=== PATIENT | female | born 1965 | race African-American/Black ===

== ENCOUNTER 2016-09-27 16:02 | Emergency (ER) | payer OTHER ==
[~2016-09-27] VITALS: Ht 157.5 cm; Wt 85.0 kg
[~2016-09-27 16:02] MED LIST: AMLO10 PO; COZA100T PO; HYDR-2768 PO; KLOR20TA6 PO; SPIR25TA PO
[2016-09-27 16:04] VITALS: BP 204/105; PULSE 64; RESP 16; TEMP 98.1; O2SAT 99
--- NOTE | 2016-09-27 16:10 | PD ---
Physical Exam Time Seen by Provider: 16:08 Narrative 51 y/o female with poorly controlled htn presents for evaluation of blurred vision for 3 days, h/a for one day. Sent by Dr. Obrien. Vital signs reviewed. Seen at triage desk. Awaiting bed placement. Data Data Last Documented VS Vital Signs Date Time Temp Pulse Resp B/P Pulse Ox O2 Delivery O2 Flow Rate FiO2 09/27/16 16:04 98.1 64 16 204/105 99 MDM Medical Record Reviewed: Yes Supervised Visit with NORA: No Allan Moses Sep 27, 2016 16:10
[2016-09-27 16:25] VITALS: BP 185/91; PULSE 63; RESP 18; O2SAT 98
--- NOTE | 2016-09-27 16:27 | PD ---
HPI Chief Complaint: Hypertension Time Seen by Provider: 16:13 Travel History International Travel<30 days: No Contact w/Intl Traveler<30days: No Traveled to known affect area: No History of Present Illness HPI 51 y/o female presents with blurry vision and frontal headache over the past couple of days with poorly controlled blood pressure. She states her primary doctor has tried to adjust her medications but they are having difficulty controlling her pressure. She denies any any numbness, weakness, fever or other concurrent complaints. Quality is pressure. Severity is mild. She states that her symptoms are getting better. She states she went to her primary doctor and they advised her to come here because they didn't know what else to do for her. She states they're working on referring her to a specialist to help control her pressure and do more testing as well. [facility] Past Medical History Anemia: Yes Asthma: Yes Heart Rhythm Problems: No Cancer: No Cardiovascular Problems: Yes High Cholesterol: No Chest Pain: No Congestive Heart Failure: No COPD: No Cerebrovascular Accident: No Diabetes: Yes (diet controlled) Diminished Hearing: No Endocrine: No Genitourinary: No Headaches: Yes Hypertension: Yes Immune Disorder: No Musculoskeletal: No Neurologic: Yes Psychiatric: No Reproductive: No Respiratory: Yes Migraines: No Seizures: Yes Sleep Apnea: No : 2 Para: 2 Miscarriage: 0 : 0 Tubal Ligation: Yes (1990) Past Surgical History Abdominal Surgery: No Cardiac Surgery: No Ear Surgery: No Endocrine Surgery: No Eye Surgery: No Genitourinary Surgery: No Gynecologic Surgery: Yes Hysterectomy: Yes Neurologic Surgery: Yes (ANUERYSM REPAIR 2006) Oral Surgery: No Thoracic Surgery: No Other Surgery: Yes (BIOPSY RT LEG ) Social History Alcohol Use: Yes (WINE ON THE WEEKENDS) Tobacco Use: Yes (<2-3 DAILY) Substance Use: No Allergies-Medications (Allergen,Severity, Reaction): Coded Allergies: No Known Allergies (Verified , 05/05/15) Reported Meds & Prescriptions Reported Meds & Active Scripts Active Reported K-Dur (Potassium Chloride) 20 Meq Tabcr 20 Meq PO DAILY Hctz (Hydrochlorothiazide) 25 Mg Tab 25 Mg PO DAILY Spironolactone Unknown Strength Tab 50 Mg PO DAILY Cozaar (Losartan Potassium) 100 Mg Tab 50 Mg PO DAILY Norvasc (Amlodipine Besylate) 10 Mg Tab 10 Mg PO DAILY Review of Systems Except as stated in HPI: all other systems reviewed are Neg Physical Exam Narrative GENERAL: Well-nourished, well-developed patient. Well-appearing SKIN: Warm and dry. HEAD: Normocephalic and atraumatic. EYES: No injection or drainage. ENT: No nasal drainage noted. NECK: Supple, trachea midline. CARDIOVASCULAR: Regular rate and rhythm RESPIRATORY: Breath sounds equal bilaterally at apices. No accessory muscle use. GASTROINTESTINAL: Abdomen soft, non-tender, nondistended. EXTREMITIES: No edema. NEUROLOGICAL: Awake and alert. Motor and sensory grossly within normal limits. Normal speech. 5 out of 5 in all 4 extremities, no facial droop Data Data Last Documented VS Vital Signs Date Time Temp Pulse Resp B/P Pulse Ox O2 Delivery O2 Flow Rate FiO2 09/27/16 16:30 64 170/88 09/27/16 16:25 18 98 Room Air 09/27/16 16:04 98.1 Orders Complete Blood Count With Diff (09/27/16 16:22) Basic Metabolic Panel (Bmp) (09/27/16 16:22) Ct Brain W/O Iv Contrast(Rout) (09/27/16 ) Electrocardiogram (09/27/16 ) Iv Access Insert/Monitor (09/27/16 16:22) Ecg Monitoring (09/27/16 16:22) Oximetry (09/27/16 16:22) Labs Laboratory Tests Test 09/27/16 16:31 White Blood Count 8.1 TH/MM3 Red Blood Count 4.27 MIL/MM3 Hemoglobin 12.4 GM/DL Hematocrit 38.3 % Mean Corpuscular Volume 89.8 FL Mean Corpuscular Hemoglobin 29.1 PG Mean Corpuscular Hemoglobin 32.4 % Concent Red Cell Distribution Width 13.6 % Platelet Count 209 TH/MM3 Mean Platelet Volume 9.0 FL Neutrophils (%) (Auto) 40.7 % Lymphocytes (%) (Auto) 45.9 % Monocytes (%) (Auto) 10.7 % Eosinophils (%) (Auto) 2.2 % Basophils (%) (Auto) 0.5 % Neutrophils # (Auto) 3.3 TH/MM3 Lymphocytes # (Auto) 3.7 TH/MM3 Monocytes # (Auto) 0.9 TH/MM3 Eosinophils # (Auto) 0.2 TH/MM3 Basophils # (Auto) 0.0 TH/MM3 CBC Comment DIFF FINAL Differential Comment Sodium Level 137 MEQ/L Potassium Level 4.4 MEQ/L Chloride Level 101 MEQ/L Carbon Dioxide Level 29.8 MEQ/L Anion Gap 6 MEQ/L Blood Urea Nitrogen 16 MG/DL Creatinine 1.03 MG/DL Estimat Glomerular Filtration 68 ML/MIN Rate Random Glucose 105 MG/DL Calcium Level 9.7 MG/DL MDM Medical Decision Making Medical Screen Exam Complete: Yes Emergency Medical Condition: Yes Medical Record Reviewed: Yes (pmh confirmed) Interpretation(s) CBC & BMP Diagram 09/27/16 16:31 Last [address] 09/27/16 0000 Signed Impressions: Service Date/Time: Tuesday, September 27, 2016 16:50 - CONCLUSION: No acute intracranial findings Rip Howard MD Differential Diagnosis Tension, migraine, hypertensive urgency, bleed Narrative Course Will check blood work, CT brain and monitor ED workup no acute, blood pressure improved on its own,Patient denies any new complaints and states that they are feeling better. Patient happy with care, all questions answered. Patient knows that follow up is incumbent on them and to return to the emergency room immediately if new or worsening symptoms develop. Patient given strict return precautions, vitals reviewed and are normal , agrees to further workup as an outpatient. Diagnosis Primary Impression: Cephalgia Qualified Code: R51 - Acute nonintractable headache, unspecified headache type Patient Instructions: General Instructions Additional Instructions: keep blood pressure log, follow with primary friday, tylenol as needed Med/Other Pt SpecificInfo: No Change to Meds Disposition: 01 DISCHARGE HOME Condition: Stable Ana Mcknight MD Sep 27, 2016 16:26
[2016-09-27 16:30] VITALS: BP 170/88; PULSE 64
[2016-09-27 16:56] LABS: AUTOMATED NEUTROPHIL # 3.3 TH/MM3 (1.8-7.7); BASOPHIL % 0.5 % (0.0-2.0); EOSINOPHIL # 0.2 TH/MM3 (0-0.4); EOSINOPHIL % 2.2 % (0.0-4.0); HEMATOCRIT 38.3 % (35.0-46.0); HEMO FLAGS DIFF FINAL; LYMPH % 45.9 % (9.0-44.0); LYMPHOCYTE # 3.7 TH/MM3 (1.0-4.8); MEAN CELL VOLUME 89.8 FL (80.0-100.0); MEAN CORPUSCULAR HEMOGLOBIN 29.1 PG (27.0-34.0); MEAN CORPUSCULAR HGB CONC 32.4 % (32.0-36.0); MONO % 10.7 % (0.0-8.0); NEUT % 40.7 % (16.0-70.0); PLATELET COUNT 209 TH/MM3 (150-450); RED BLOOD COUNT 4.27 MIL/MM3 (4.00-5.30); RED CELL DISTRIBUTION WIDTH 13.6 % (11.6-17.2); WHITE BLOOD COUNT 8.1 TH/MM3 (4.0-11.0)
--- NOTE | 2016-09-27 17:07 | RADRPT ---
EXAM DATE/TIME: 09/27/2016 16:50 [facility] COMPARISON: CT BRAIN W/O CONTRAST, May 05, 2015, 13:03. INDICATIONS : Uncontrolled hypertension.Blurred vision, headache. RADIATION DOSE: 35.76 CTDIvol (mGy) MEDICAL HISTORY : Hypertension. Cardiovascular disease Seizures.diabetes SURGICAL HISTORY : Tubal ligation. Aneurysm clips in brain. ENCOUNTER: Initial ACUITY: 1 week PAIN SCALE: 6/10 LOCATION: Bilateral cranial TECHNIQUE: Multiple contiguous axial images were obtained of the head. Using automated exposure control and adj ustment of the mA and/or kV according to patient size, radiation dose was kept as low as reasonably a chievable to obtain optimal diagnostic quality images. DICOM format image data is available electro nically for review and comparison. FINDINGS: There is an aneurysm clip in the left anterior skull base region. There has been previous left fronto temporal craniotomy. There is no evidence of intracranial mass or hemorrhage. There is minimal enceph alomalacia in the left frontal region. There is nothing to suggest acute infarction. Ventricles are s ymmetric and normal. CONCLUSION: No acute intracranial findings Rip Howard MD on September 27, 2016 at 17:03 Board Certified Radiologist. This report was verified electronically.
[2016-09-27 17:30] LABS: BICARBONATE 29.8 MEQ/L (21.0-32.0); POTASSIUM 4.4 MEQ/L (3.5-5.1)
[2016-09-27 18:01] VITALS: BP 165/80
--- NOTE | 2016-09-28 07:06 | EKG ---
Date Performed: 09/27/2016 Time Performed: 16:21:36 PTAGE: 51 years EKG: Sinus rhythm MODERATE VOLTAGE CRITERIA FOR LVH, CONSIDER NORMAL VARIANT Nonspecific T wave changes NO PREVIOUS TRACING DOCTOR: Alberto Aguilera Interpretating Date/Time 09/28/2016 07:04:38
== END 2016-09-27 18:19 | disposition home or self-care (01) ==
LOC: NEPE 16:02
DX: R51 Headache (principal); H53.8 Other visual disturbances; D64.9 Anemia, unspecified; J45.909 Unspecified asthma, uncomplicated; E11.9 Type 2 diabetes mellitus without complications; I10 Essential (primary) hypertension; R56.9 Unspecified convulsions; F17.200 Nicotine dependence, unspecified, uncomplicated; Z79.899 Other long term (current) drug therapy
CPT/HCPCS: 70450; 80048; 85025; 93005

== ENCOUNTER 2016-12-17 10:28 | Emergency (ER) | payer OTHER ==
[~2016-12-17] VITALS: Ht 162.6 cm; Wt 100.0 kg
[2016-12-17 10:29] VITALS: BP 124/66; PULSE 72; RESP 32; TEMP 98.5; O2SAT 100
[2016-12-17 10:46] VITALS: BP 110/61; PULSE 68; RESP 24; O2SAT 100
--- NOTE | 2016-12-17 10:49 | PD ---
HPI Chief Complaint: Respiratory Symptoms Time Seen by Provider: 10:47 Travel History International Travel<30 days: No Contact w/Intl Traveler<30days: No Traveled to known affect area: No PFSH Past Medical History Anemia: Yes Asthma: Yes Heart Rhythm Problems: No Cancer: No Cardiovascular Problems: Yes High Cholesterol: No Chest Pain: No Congestive Heart Failure: No COPD: No Cerebrovascular Accident: No Diabetes: Yes (diet controlled) Patient Takes Glucophage: No Diminished Hearing: No Endocrine: No Gastrointestinal Disorders: No Genitourinary: No Headaches: No Hypertension: Yes Immune Disorder: No Implanted Vascular Access Dvce: No Musculoskeletal: No Neurologic: Yes Psychiatric: No Reproductive: No Respiratory: Yes Migraines: No Seizures: Yes Sleep Apnea: No Tetanus Vaccination: < 5 Years ?: Not : 2 Para: 2 Miscarriage: 0 : 0 Tubal Ligation: Yes (1990) Past Surgical History Abdominal Surgery: No Cardiac Surgery: No Ear Surgery: No Endocrine Surgery: No Eye Surgery: No Genitourinary Surgery: No Gynecologic Surgery: Yes Hysterectomy: Yes Neurologic Surgery: Yes (ANUERYSM REPAIR clip 2006) Oral Surgery: No Thoracic Surgery: No Other Surgery: Yes (BIOPSY RT LEG ) Social History Alcohol Use: No Tobacco Use: Yes (3-4 DAILY ) Substance Use: No Allergies-Medications (Allergen,Severity, Reaction): Coded Allergies: amlodipine (Verified Allergy, Severe, 12/17/16) SKIN RASHES, SOB, ANAPHYALAXIS lisinopril (Verified Allergy, Severe, 12/17/16) SKIN RASHES, SOB, ANAPHYALAXIS Reported Meds & Prescriptions Reported Meds & Active Scripts Active Reported K-Dur (Potassium Chloride) 20 Meq Tabcr 20 Meq PO DAILY Hctz (Hydrochlorothiazide) 25 Mg Tab 25 Mg PO DAILY Spironolactone Unknown Strength Tab 50 Mg PO DAILY Cozaar (Losartan Potassium) 100 Mg Tab 50 Mg PO DAILY Norvasc (Amlodipine Besylate) 10 Mg Tab 10 Mg PO DAILY Data Data Last Documented VS Vital Signs Date Time Temp Pulse Resp B/P (MAP) Pulse Ox O2 Delivery O2 Flow Rate FiO2 12/17/16 10:46 68 24 110/61 (77) 100 Room Air 12/17/16 10:29 98.5 MDM Medical Decision Making Medical Screen Exam Complete: Yes Emergency Medical Condition: Yes Medical Record Reviewed: Yes Condition: Stable Mangali,Geno PA Dec 17, 2016 10:49
[2016-12-17] MEDS ORDERED: FURO1TAB60 PO (11:00)
[2016-12-17] MEDS ORDERED: VENTAER INH ×2 (11:00→13:59)
[2016-12-17] MEDS ORDERED: CARV12.5 PO (11:00)
[2016-12-17] MEDS ORDERED: K-TA10TA PO (11:00)
[2016-12-17] MEDS ORDERED: HYDR-3800 PO (11:00)
[2016-12-17] MEDS ORDERED: ZOLO25TA PO (11:00)
[2016-12-17] MEDS ORDERED: LOSA100T PO (11:00)
[2016-12-17] MEDS ORDERED: CART120C PO (11:00)
[2016-12-17 11:07] VITALS: RESP 24; O2SAT 100
[2016-12-17] MEDS ORDERED: RESP: ALBUTEROL 2.5 MG/IPRATROPIUM 0.5 MG NEB (SCH) NEB ONE (11:15)
[2016-12-17] MEDS ORDERED: SODIUM CHLORIDE 0.9% FLUSH 10 ML FLUSH IVF PRN (11:15)
[2016-12-17] MEDS ORDERED: predniSONE 20 MG TAB PO ONE (11:15)
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
[2016-12-17 11:21] LABS: AUTOMATED NEUTROPHIL # 3.6 TH/MM3 (1.8-7.7); BASOPHIL % 0.5 % (0.0-2.0); EOSINOPHIL # 0.1 TH/MM3 (0-0.4); EOSINOPHIL % 1.7 % (0.0-4.0); HEMATOCRIT 35.8 % (35.0-46.0); HEMO FLAGS DIFF FINAL; LYMPH % 43.2 % (9.0-44.0); LYMPHOCYTE # 3.3 TH/MM3 (1.0-4.8); MEAN CELL VOLUME 89.9 FL (80.0-100.0); MEAN CORPUSCULAR HEMOGLOBIN 29.7 PG (27.0-34.0); MEAN CORPUSCULAR HGB CONC 33.1 % (32.0-36.0); MONO % 7.2 % (0.0-8.0); NEUT % 47.4 % (16.0-70.0); PLATELET COUNT 224 TH/MM3 (150-450); RED BLOOD COUNT 3.99 MIL/MM3 (4.00-5.30); WHITE BLOOD COUNT 7.6 TH/MM3 (4.0-11.0)
--- NOTE | 2016-12-17 11:21 | PD ---
HPI Chief Complaint: Respiratory Symptoms Time Seen by Provider: 10:47 Travel History International Travel<30 days: No Contact w/Intl Traveler<30days: No Traveled to known affect area: No History of Present Illness HPI Patient seen with Dr. Caraballo. Agree with her documentation. On my history the patient does endorse a history of DVTs, denies history of PEs. Denies history of stasis. She has been Wheezing for several days gradually worsening and decided to become in today after discussing with her coworkers. Denies any fevers. Endorses a dry cough. No chest pain abdominal pain and nausea vomiting. She has not been on any blood thinners that she was discontinued from this medication. PFSH Past Medical History Anemia: Yes Asthma: Yes Heart Rhythm Problems: No Cancer: No Cardiovascular Problems: Yes High Cholesterol: No Chest Pain: No Congestive Heart Failure: No COPD: No Cerebrovascular Accident: No Diabetes: Yes (diet controlled) Patient Takes Glucophage: No Diminished Hearing: No Endocrine: No Gastrointestinal Disorders: No Genitourinary: No Headaches: No Hypertension: Yes Immune Disorder: No Implanted Vascular Access Dvce: No Musculoskeletal: No Neurologic: Yes Psychiatric: No Reproductive: No Respiratory: Yes Migraines: No Seizures: Yes Sleep Apnea: No Tetanus Vaccination: < 5 Years ?: Not : 2 Para: 2 Miscarriage: 0 : 0 Tubal Ligation: Yes (1990) Past Surgical History Abdominal Surgery: No Cardiac Surgery: No Ear Surgery: No Endocrine Surgery: No Eye Surgery: No Genitourinary Surgery: No Gynecologic Surgery: Yes Hysterectomy: Yes Neurologic Surgery: Yes (ANUERYSM REPAIR clip 2006) Oral Surgery: No Thoracic Surgery: No Other Surgery: Yes (BIOPSY RT LEG ) Social History Alcohol Use: No Tobacco Use: Yes (3-4 DAILY ) Substance Use: No Allergies-Medications (Allergen,Severity, Reaction): Coded Allergies: amlodipine (Verified Allergy, Severe, 12/17/16) SKIN RASHES, SOB, ANAPHYALAXIS lisinopril (Verified Allergy, Severe, 12/17/16) SKIN RASHES, SOB, ANAPHYALAXIS Reported Meds & Prescriptions Reported Meds & Active Scripts Active Prednisone 20 Mg Tab 60 Mg PO DAILY 5 Days Ventolin Hfa 18 GM Inh (Albuterol Sulfate) 90 Mcg/Act Aer 2 Puff INH Q4H PRN Reported Zoloft (Sertraline HCl) 25 Mg Tab 50 Mg PO DAILY Lasix (Furosemide) 40 Mg Tab 40 Mg PO DAILY Coreg (Carvedilol) 12.5 Mg Tab 12.5 Mg PO BID Cartia Xt (Diltiazem ER 24 HR) 120 Mg Caper 120 Mg PO DAILY Hydralazine HCl 50 Mg Tablet 50 Mg PO TID K-Tab (Potassium Chloride) 10 Meq Tab 20 Meq PO DAILY Losartan (Losartan Potassium) 100 Mg Tab 100 Mg PO DAILY Review of Systems Except as stated in HPI: all other systems reviewed are Neg Physical Exam Narrative GENERAL: Well-developed well-nourished, morbidly obese. Speaking in full sentences. SKIN: Focused skin assessment warm/dry. HEAD: Atraumatic. Normocephalic. EYES: Pupils equal and round. No scleral icterus. No injection or drainage. ENT: No nasal bleeding or discharge. Mucous membranes pink and moist. NECK: Trachea midline. No JVD. CARDIOVASCULAR: Regular rate and rhythm. No murmur appreciated. RESPIRATORY: No accessory muscle use. Clear to auscultation. Breath sounds equal bilaterally. When asked to take a deep breath the patient does have audible upper respiratory stridor which she is able to easily suppress while talking. Lower breath sounds are clear. GASTROINTESTINAL: Abdomen soft, non-tender, nondistended. Hepatic and splenic margins not palpable. MUSCULOSKELETAL: No obvious deformities. No clubbing. No cyanosis. No edema. NEUROLOGICAL: Awake and alert. No obvious cranial nerve deficits. Motor grossly within normal limits. Normal speech. PSYCHIATRIC: Appropriate mood and affect; insight and judgment normal. Data Data Last Documented VS Vital Signs Date Time Temp Pulse Resp B/P (MAP) Pulse Ox O2 Delivery O2 Flow Rate FiO2 12/17/16 14:25 12/17/16 11:29 100 21 12/17/16 11:07 Room Air 12/17/16 11:07 24 12/17/16 10:46 68 12/17/16 10:29 98.5 Orders Orders Electrocardiogram (12/17/16 11:04) Ckmb (Isoenzyme) Profile (12/17/16 11:04) Complete Blood Count With Diff (12/17/16 11:04) Comprehensive Metabolic Panel (12/17/16 11:04) Magnesium (Mg) (12/17/16 11:04) Prothrombin Time / Inr (Pt) (12/17/16 11:04) Act Partial Throm Time (Ptt) (12/17/16 11:04) Troponin I (12/17/16 11:04) Chest, Single Ap (12/17/16 11:04) Ecg Monitoring (12/17/16 11:04) Iv Access Insert/Monitor (12/17/16 11:04) Oximetry (12/17/16 11:04) Oxygen Administration (12/17/16 11:04) Sodium Chloride 0.9% Flush (Ns Flush) (12/17/16 11:15) Ct Pulmonary Angiogram (12/17/16 11:04) Albuterol-Ipratropium Neb (Duoneb Neb) (12/17/16 11:15) Prednisone (Deltasone) (12/17/16 11:15) CKMB (12/17/16 11:54) CKMB% (12/17/16 11:54) Iohexol 350 Inj (Omnipaque 350 Inj) (12/17/16 13:10) Labs Laboratory Tests Test 12/17/16 11:09 12/17/16 11:54 White Blood Count 7.6 TH/MM3 Red Blood Count 3.99 MIL/MM3 Hemoglobin 11.8 GM/DL Hematocrit 35.8 % Mean Corpuscular Volume 89.9 FL Mean Corpuscular Hemoglobin 29.7 PG Mean Corpuscular Hemoglobin Concent 33.1 % Red Cell Distribution Width 15.0 % Platelet Count 224 TH/MM3 Mean Platelet Volume 8.4 FL Neutrophils (%) (Auto) 47.4 % Lymphocytes (%) (Auto) 43.2 % Monocytes (%) (Auto) 7.2 % Eosinophils (%) (Auto) 1.7 % Basophils (%) (Auto) 0.5 % Neutrophils # (Auto) 3.6 TH/MM3 Lymphocytes # (Auto) 3.3 TH/MM3 Monocytes # (Auto) 0.5 TH/MM3 Eosinophils # (Auto) 0.1 TH/MM3 Basophils # (Auto) 0.0 TH/MM3 CBC Comment DIFF FINAL Differential Comment Prothrombin Time 10.5 SEC Prothromb Time International Ratio 1.0 RATIO Activated Partial Thromboplast Time 28.0 SEC Blood Urea Nitrogen 19 MG/DL Creatinine 1.36 MG/DL Random Glucose 99 MG/DL Total Protein 7.7 GM/DL Albumin 3.6 GM/DL Calcium Level 8.5 MG/DL Magnesium Level 2.2 MG/DL Alkaline Phosphatase 99 U/L Aspartate Amino Transf (AST/SGOT) 24 U/L Alanine Aminotransferase (ALT/SGPT) 28 U/L Total Bilirubin 0.3 MG/DL Sodium Level 141 MEQ/L Potassium Level 3.9 MEQ/L Chloride Level 108 MEQ/L Carbon Dioxide Level 27.1 MEQ/L Anion Gap 6 MEQ/L Estimat Glomerular Filtration Rate 49 ML/MIN Total Creatine Kinase 157 U/L Creatine Kinase MB 0.6 NG/ML Troponin I LESS THAN 0.02 NG/ML MDM Medical Decision Making Medical Screen Exam Complete: Yes Emergency Medical Condition: Yes Interpretation(s) EKG shows sinus rhythm with left axis deviation normal R-wave progression. T- wave inversions in II, III, and F aVF as well as V3 through V6. Intervals within normal limits. This is an abnormal EKG. Comparison to 09/27/2016 shows no change. Comparison to 05/05/2015 shows no change. Differential Diagnosis Asthma exacerbation, bronchitis, pneumonia, PE needs consideration. Narrative Course Patient roomed in the emergency department given DuoNeb, prednisone, CT PE study negative, no pneumonias, no PEs. Labs are reassuring. The patient is feeling better after treatments. Discussed bronchitis is the likely diagnosis versus upper respiratory infection. Oxygen saturation is been maintained while in the emergency department, she is laughing with her friends in the room. Discussed symptomatic management and return to ED criteria. She is stable for discharge. Diagnosis Primary Impression: Bronchitis Med/Other Pt SpecificInfo: Prescription(s) given Scripts Azithromycin (Azithromycin) 250 Mg Tab 250 MG PO DIRECTED for Infection, #6 TAB 0 Refills Take 2 tabs (500 mg) on day 1 then 1 tab daily x 4 days. Prov: Danial Clemons MD 12/17/16 Albuterol Neb (Albuterol Neb) 2.5 Mg/3 Ml Neb 2.5 MG NEB Q4HR NEB Y for SHORTNESS OF BREATH, #60 NEBULE 0 Refills While awake Prov: Danial Clemons MD 12/17/16 Prednisone (Prednisone) 20 Mg Tab 60 MG PO DAILY for 5 Days, #15 TAB 0 Refills Prov: Danial Clemons MD 12/17/16 Albuterol 18 GM Inh (Ventolin Hfa 18 GM Inh) 90 Mcg/Act Aer 2 PUFF INH Q4H Y for COUGH/WHEEZING, #1 INHALER 1 Refill Prov: Danial Clemons MD 12/17/16 Disposition: 01 DISCHARGE HOME Condition: Stable Danial Clemons MD Dec 17, 2016 11:21
[2016-12-17 11:29] VITALS: O2SAT 100
[2016-12-17 11:39] LABS: PROTHROMBIN TIME - PATIENT 10.5 SEC (9.8-11.6)
--- NOTE | 2016-12-17 12:05 | RADRPT ---
EXAM DATE/TIME: 12/17/2016 11:38 [facility] COMPARISON: No previous studies available for comparison. INDICATIONS : Shortness of breath with wheezing. History asthma. MEDICAL HISTORY : Asthma SURGICAL HISTORY : None. ENCOUNTER: Initial ACUITY: 2 days PAIN SCORE: 2/10 LOCATION: Bilateral chest FINDINGS: A single view of the chest demonstrates the lungs to be symmetrically aerated without evidence of mas s, infiltrate or effusion. Minimal basilar atelectasis. The cardiomediastinal contours are unremarkab le. Osseous structures are intact. CONCLUSION: 1. Minimal basilar atelectasis. Jordon Woods MD on December 17, 2016 at 12:02 Board Certified Radiologist. This report was verified electronically.
[2016-12-17 12:35] LABS: ANION GAP 6 MEQ/L (5-15); AST (GOT) 24 U/L (15-37); BICARBONATE 27.1 MEQ/L (21.0-32.0); BLOOD UREA NITROGEN 19 MG/DL (7-18); CHLORIDE 108 MEQ/L (98-107); GLOMERULAR FILTRATION RATE 49 ML/MIN (>89); MAGNESIUM 2.2 MG/DL (1.5-2.5); POTASSIUM 3.9 MEQ/L (3.5-5.1); SODIUM (NA) 141 MEQ/L (136-145)
[2016-12-17 12:36] LABS: ALKALINE PHOSPHATASE 99 U/L (45-117); ALT (GPT) 28 U/L (10-53); CREATINE KINASE 157 U/L (26-192); TOTAL BILIRUBIN ADULT 0.3 MG/DL (0.2-1.0)
[2016-12-17 12:49] LABS: CKMB 0.6 NG/ML (0.5-3.6)
[2016-12-17] MEDS ORDERED: IOHEXOL 350 MG/ML 10 ML VIAL (for RAD DIAG) IVCONTRAST ONE (13:10)
--- NOTE | 2016-12-17 13:38 | RADRPT ---
EXAM DATE/TIME: 12/17/2016 13:03 [place] COMPARISON: CHEST SINGLE AP, December 17, 2016, 11:38. INDICATIONS : Short of breath. Wheezing x 1 week. IV CONTRAST: 65 cc Omnipaque 350 (iohexol) IV RADIATION DOSE: 24.25 CTDIvol (mGy) MEDICAL HISTORY : Diabetes mellitus type 2. Seizures. Hypertension.Asthma. SURGICAL HISTORY : Hysterectomy. Tubal ligation. ENCOUNTER: Initial ACUITY: 1 week PAIN SCALE: 4/10 LOCATION: Left chest TECHNIQUE: Volumetric scanning of the chest was performed using a pulmonary embolism protocol MIP images were re constructed. Using automated exposure control and adjustment of the mA and/or kV according to patien t size, radiation dose was kept as low as reasonably achievable to obtain optimal diagnostic quality images. DICOM format image data is available electronically for review and comparison. Follow-up recommendations for detected pulmonary nodules are based at a minimum on nodule size and pa tient risk factors according to Fleischner Society Guidelines. FINDINGS: PULMONARY ARTERIES: No filling defects are seen in the pulmonary arteries through the segmental level. LUNGS: There is no consolidation or pneumothorax . No concerning pulmonary nodule is visualized. PLEURAE: There is no pleural thickening or pleural effusion. MEDIASTINUM: There is good visualization of the great vessels of the middle mediastinum. No evidence of mediastin al or hilar adenopathy/mass. Heart enlarged. MUSCULOSKELETAL: Within normal limits for patient age. MISCELLANEOUS: The visualized upper abdominal organs demonstrate no acute abnormality. CONCLUSION: 1. No evidence for pulmonary embolism. 2. No consolidation or pleural effusion. 3. Mild cardiomegaly. Chris Navarro MD on December 17, 2016 at 13:33 Board Certified Radiologist. This report was verified electronically.
[2016-12-17] MEDS ORDERED: PRED20 PO (13:59)
[2016-12-17] MEDS ORDERED: AZIT250T3 PO (13:59)
[2016-12-17] MEDS ORDERED: ALBU0.08 NEB (13:59)
--- NOTE | 2016-12-18 21:06 | EKG ---
Date Performed: 12/17/2016 Time Performed: 11:18:07 PTAGE: 51 years EKG: Sinus rhythm LEFT VENTRICULAR HYPERTROPHY AND ST-T CHANGE ABNORMAL ECG PREVIOUS TRACING : 09/27/2016 16.21 Compared to prior tracing no significant change DOCTOR: Tommy Huerta Interpretating Date/Time 12/18/2016 20:55:54
== END 2016-12-17 14:31 | disposition home or self-care (01) ==
LOC: NEPD 10:28
DX: J40 Bronchitis, not specified as acute or chronic (principal); D64.9 Anemia, unspecified; E11.9 Type 2 diabetes mellitus without complications; I10 Essential (primary) hypertension; F17.210 Nicotine dependence, cigarettes, uncomplicated; I51.7 Cardiomegaly; R94.31 Abnormal electrocardiogram [ECG] [EKG]; Z86.718 Personal history of other venous thrombosis and embolism
CPT/HCPCS: 71010; 71275; 80053; 82550; 82552; 83735; 84484; 85025; 85610; 85730; 93005; 94664; 99285; J7512; Q9967